=== PATIENT | male | born 1940 | race Caucasian/White ===

== ENCOUNTER 2016-06-15 08:52 | Emergency (ER) | payer OTHER ==
[~2016-06-15] VITALS: Ht 177.8 cm; Wt 85.0 kg
[~2016-06-15 08:52] MED LIST: ACETAMINOPHN-T1 EACH PO; ADULT LOW DOSE81 M1 PO; ASPIR 8181 M1 PO; FISH OIL 1,0001 EAC7 PO; GLUCOSAMINE1000 MG PO; LOPRESSOR12.5 MG PO; LOPRESSOR25 MG PO; METOPROLOL SUCC25 MG PO; NOHOMEMEDS; PLAVIX75 MG PO; PRILOSEC40 MG PO; PROTONIX40 MG PO; SIMVASTATIN20 MG PO; ULTRAM50 MG PO; ZESTRIL,PRINIV2.5 MG PO; ZOCOR20 MG PO; Zocor PO
[2016-06-15 10:25] LABS: EOSINOPHIL (%) 2.1 % (0-5); EOSINOPHIL COUNT 0.1 K/uL (0-0.3); HEMATOCRIT 47.8 % (38.0-50.0); IMMATURE GRANULOCYTE (%) 0.6 % (0.0-0.7); MCH 30.3 PG (29.0-34.0); MCHC 32.2 G/DL (30.0-36.0); MCV 94.1 FL (86-99); MEAN PLAT.VOLUME 9.7 uM^3 (9.0-12.4); MONOCYTE (%) 6.6 % (3-12); MONOCYTE COUNT 0.4 K/uL (0-0.8); NEUTROPHIL (%) 75.6 % (45-76); PLATELET COUNT 168 K/uL (156-360); RBC DIS.WIDTH-CV 12.4 % (11.8-14.6); RBC DIS.WIDTH-SD 43.2 % (39-53); RED BLOOD COUNT 5.08 M/uL (4.00-5.50); WHITE BLOOD COUNT 6.6 K/uL (4.1-10.2)
[2016-06-15 10:36] LABS: CHLORIDE 106 mEq/L (99-109); POTASSIUM 4.7 mEq/L (3.7-5.4); SODIUM 137 mEq/L (136-147)
[2016-06-15 10:37] LABS: GLUCOSE 148 mg/dL (70-99)
[2016-06-15 10:39] LABS: ANION GAP 9 MEQ/L (2-14)
[2016-06-15 10:41] LABS: GFR ESTIMATE (CALCULATED) > 59 mL/min/
[2016-06-15 10:42] LABS: UREA NITROGEN (BUN) 19 mg/dL (9-23)
[2016-06-15 10:47] LABS: TROP-I INTERPRETATION NEGATIVE; TROPONIN-I < 0.01 ng/mL (0.0-0.30)
[2016-06-15] MEDS ORDERED: ANTIVERT25 MG PO (11:14)
[2016-06-15 11:38] VITALS: BP 122/82
== END 2016-06-15 11:39 | disposition home or self-care (01) ==
LOC: EME 08:52
PROVIDERS: Emergency Medicine
DX: R42 Dizziness and giddiness (principal); I10 Essential (primary) hypertension; I25.2 Old myocardial infarction; Z95.1 Presence of aortocoronary bypass graft; Z87.891 Personal history of nicotine dependence; G89.29 Other chronic pain; R41.82 Altered mental status, unspecified
CPT/HCPCS: 70450; 71010; 80048; 84484; 85025; 93005; 99281; 99284